=== PATIENT | female | born 1995 | race Caucasian/White ===

== ENCOUNTER 2017-02-16 12:44 | Emergency (ER) | payer OTHER ==
[~2017-02-16] VITALS: Ht 167.6 cm; Wt 94.5 kg
[2017-02-16 12:56] VITALS: BP 132/75; TEMP 98.2
[2017-02-16] MEDS ORDERED: FLEXERIL 1010 MG/TAB PO (16:15)
[2017-02-16 16:23] VITALS: PULSE 75
== END 2017-02-16 16:24 | disposition home or self-care (01) ==
LOC: COL.ER 12:44
DX: M25.512 Pain in left shoulder (principal); V48.5XXA Car driver injured in noncollision transport accident in traffic accident, initial encounter; Y92.410 Unspecified street and highway as the place of occurrence of the external cause; J45.909 Unspecified asthma, uncomplicated